=== PATIENT | female | born 1955 | race Caucasian/White ===

== ENCOUNTER 2023-09-04 11:58 | Emergency (ER) | payer MEDICARE, SELFPAY ==
[2023-09-04 12:00] VITALS: BP 142/82; PULSE 90; RESP 16; TEMP 36.4; O2SAT 98
--- NOTE | 2023-09-04 12:45 | DI.RAD_ITS ---
Exam(s) XR ANKLE LT COMPLETE EXAM: XR ANKLE LT COMPLETE CLINICAL HISTORY: injury TECHNIQUE: 2D digital imaging was performed of the left ankle. Three images were obtained. AP, lat eral and oblique views were obtained. COMPARISON: No exams were available for comparison FINDINGS: BONES: There is cortical irregularity at the lateral aspect of the distal fibula with associated soft tissue swelling suspicious for nondisplaced fracture. No bony destructive lesion is seen. JOINTS:The ankle mortise is normally aligned. SOFT TISSUE: Normal. IMPRESSION: Cyst findings suspicious for nondisplaced fracture involving the lateral aspect of the distal left fi bula. There is associated overlying soft tissue swelling. DATA REPOSITORY: RADIATION DOSE DELIVERED:
--- NOTE | 2023-09-04 13:18 | ED.GENADUL_ITS ---
Discharge Plan Disposition Patient Disposition: Home Discharge Details Clinical Impression: Fracture of distal end of fibula Primary Care Provider: Unknown,Unknown ED Provider: Preston Morales Discharge Instructions Instructions: Walking Boot, Ankle Fracture ED Additional Instructions: At this time your x-ray is suspicious for a nondisplaced distal fibula fracture. Please use the walking boot for any ambulation and continue to elevate injury and take [id number] pain medication as needed. Please follow-up with local orthopedist for reassessment of injury and to ensure proper healing. Referrals: Unknown,Unknown [Primary Care Provider] - (Please call your local orthopedist and follow-up with them for repeat assessment and imaging if needed) HPI General Mode of arrival: ambulatory . Date/Time Provider Initiated Documentation: 09/04/23 12:22 . Limitations to Documentation: no limitations . Information obtained by: patient and RN notes reviewed . History of Present Illness 68 year old F presents to the emergency department with the chief complaint of Left ankle injury, described as moderate, Quality is described as aching and sharp, and is localized to the left and lower extremity. Patient reports no radiation. Patient started experiencing this week(s) (1) and it has been constant. Immobilization improves symptom(s), and Rest improves symptom(s), Movement worsens symptoms . Patient notes no other symptoms.. General Stated Complaint: Orthopedic ALEXANDRO: 4 Review of Systems Cardiovascular Cardiovascular: Denies syncope Musculoskeletal Musculoskeletal: Reports as per HPI, Reports arthralgias, Reports joint swelling, Reports limited range of motion, Denies numbness and Denies tingling Integumentary/Breasts Skin/Breast: Denies wounds Neurologic Neurologic: Denies syncope, Denies numbness and Denies tingling Exam Const General: cooperative, no acute distress and not ill appearing Orientation: alert, awake and oriented x3 HENMT Mouth: moist mucous membranes Resp Effort & Inspection: normal respiratory effort, able to speak in complete sentences and no respiratory distress Cardio Rate: regular rate Rhythm: regular rhythm Pulses: normal peripheral pulses Skin General skin exam: no rashes or lesions noted Neuro General: patient alert, patient awake, patient oriented x3, moves all extrem ities and no focal motor deficits Sensory Exam: no sensory deficits noted Extrem General: normal exam except as noted Left lower extremity: ankle Details: tenderness Location: of the lateral malleolus, swelling Details: diffusely, abnormal ROM Details: pain with active ROM and pain with passive ROM and ecchymosis lateral ; no abrasions and no lacerations and foot Details: vascular exam Details: dorsalis pedis pulse present and normal capillary refill Course Vital Signs Vital signs: Vital Signs Temperature 36.4 C L 09/04/23 12:00 Pulse 90 09/04/23 12:00 Respiratory Rate 16 09/04/23 12:00 Blood Pressure 142/82 H 09/04/23 12:00 Pulse Oximetry 98 09/04/23 12:00 Temperature 36.4 C L 09/04/23 12:00 Temperature Source Temporal Artery Scan 09/04/23 12:00 Pulse 90 09/04/23 12:00 Respiratory Rate 16 09/04/23 12:00 Respiratory Effort Normal, Non-Labored 09/04/23 12:29 Blood Pressure 142/82 H 09/04/23 12:00 Blood Pressure Position Sitting 09/04/23 12:00 Pulse Oximetry 98 09/04/23 12:00 Oxygen Delivery Method Room Air 09/04/23 12:00 Oxygen Flow Rate 0 09/04/23 12:00 Medical Decision Making Patient presenting to the emergency department for chief complaint of left ankle injury. Patient reports that 1 week ago she slipped on a wet rock twisting her ankle. She stated no other injury at time of the event but did have hard time walking on the ankle immediately. Since then she has rested applied ice and had only minimal weightbearing activities. Patient is presenting due to lack of improvement over the last week. Again patient denies all other injury or trauma. Physical exam shows diffuse swelling to the left ankle with point tenderness to the distal aspect of the left lateral malleolus with some noted ecchymosis as well. Exam is otherwise noncontributory. Will plan on performing radiological imaging Reviewed radiological imaging which does show a irregularity/cyst that is suspicious per radiologist for a nondisplaced fracture. Given this is the area of point tenderness I do feel this is high likelihood. Patient was placed in a tall walking boot. Did discuss crutch use with patient but she states that she does not do well at all with crutches and has high chance of reinjury or falling so we will just use the walking boot. Patient does have relationship with local orthopedist given that she is not from the area and she was encouraged to call them this afternoon for arrangement of follow-up appointment preferably within the next 1 to 2 weeks to ensure proper healing. Did discuss conservative management of injury otherwise. After discussion of diagnosis and plan of care patient has no further needs, questions, or concerns and states clear understanding to return to the emergency department for any worsening symptoms. This documentation was generated using [employer] dictation system, please disregard any oddities of phrase or misspellings. Imaging Data Radiologic Study: Imaging: X-Ray Radiologist's impression: FINDINGS: BONES: There is cortical irregularity at the lateral aspect of the distal fibula with associated soft tissue swelling suspicious for nondisplaced fracture. No bony destructive lesion is seen. JOINTS:The ankle mortise is normally aligned. SOFT TISSUE: Normal. IMPRESSION: Cyst findings suspicious for nondisplaced fracture involving the lateral aspect of the distal left fibula. There is associated overlying soft tissue swelling. Quality:SDOH Health Related Social Needs: No Data to Display PFSH All Active Problems Fracture of distal end of fibula (Acute) Social History Smoking risk assessment performed?: No
== END 2023-09-04 13:21 | disposition home or self-care (01) ==
PROVIDERS: Emergency Provider Nurse Practitioner Family
DX: S82.832A Other fracture of upper and lower end of left fibula, initial encounter for closed fracture (principal); X50.0XXA Overexertion from strenuous movement or load, initial encounter
CPT/HCPCS: 27786; 99283; 73610